=== PATIENT | male | born 1960 | race Caucasian/White ===

== ENCOUNTER 2020-12-23 06:07 | Day surgery (SDC) | payer OTHER ==
[~2020-12-23] VITALS: Ht 175.3 cm; Wt 104.5 kg
[~2020-12-23 06:07] MED LIST: SODIUM CHLORIDE 0.9% 1,000 ML ONE
[2020-12-23] MEDS ORDERED: BENZOCAINE 20% 50 MCG/SPRAY 57 GM TP ONE (06:08)
[2020-12-23] MEDS ORDERED: LIDOCAINE 4% 50 ML SOLUTION TP ONE (06:08)
[2020-12-23] MEDS ORDERED: ALBUTEROL SULFATE 2.5 MG/0.5 ML NEB SOLUTION NEB ONE (06:08)
[2020-12-23] MEDS ORDERED: LIDOCAINE 2% 30 ML JELLY TP ONE (06:08)
[2020-12-23] MEDS ORDERED: SODIUM CHLORIDE 0.9% 1,000 ML IV ONE (06:30)
[2020-12-23] MEDS ORDERED: DOXY-354 PO (06:40)
[2020-12-23] MEDS ORDERED: ASPI-1450 PO (06:40)
[2020-12-23] MEDS ORDERED: HYDR-4069 PO (06:40)
[2020-12-23] MEDS ORDERED: CARV12 PO (06:40)
[2020-12-23] MEDS ORDERED: MONT-35 PO (06:40)
[2020-12-23] MEDS ORDERED: OMEP20 PO (06:40)
[2020-12-23] MEDS ORDERED: CHOL200016 PO (06:40)
[2020-12-23] MEDS ORDERED: ATOR20TA86 PO (06:40)
[2020-12-23] MEDS ORDERED: IPRA3AMP24 NEB (06:40)
[2020-12-23] MEDS ORDERED: AZEL137S8 NS (06:40)
[2020-12-23] MEDS ORDERED: NICO-803 TD (06:40)
[2020-12-23] MEDS ORDERED: FERR324T12 PO (06:40)
[2020-12-23] MEDS ORDERED: AMLO10TA55 PO (06:40)
[2020-12-23] MEDS ORDERED: PRED10 PO (06:40)
[2020-12-23] MEDS ORDERED: FURO40TA5 PO (06:40)
[2020-12-23] MEDS ORDERED: FLUT12AE3 IH (06:40)
[2020-12-23] MEDS ORDERED: LISI-809 PO (06:40)
[2020-12-23 06:47] LABS: COVID AG,FIA SOURCE NASOPHARYNGEAL
[2020-12-23] MEDS ORDERED: FentaNYL CITRATE PF 100 MCG/2 ML VIAL ONE (07:29)
[2020-12-23] MEDS ORDERED: MIDAZOLAM HCL 5 MG/ML VIAL ONE (07:30)
[2020-12-23] MEDS ORDERED: MethylPREDNISolone SOD SUCC 125 MG/2 ML VIAL ONE ×2 (09:19→10:06)
[2020-12-23] MEDS ORDERED: MethylPREDNISolone SOD SUCC 125 MG/2 ML VIAL IVP ONE (09:30)
[2020-12-23] MEDS ORDERED: OXYGEN THERAPY IH SCH (20:00)
== END 2020-12-23 10:50 | disposition home or self-care (01) ==
LOC: SURGERY 06:07
PROVIDERS: ATTEND Internal Medicine Critical Care Medicine
DX: J38.4 Edema of larynx (principal); B37.0 Candidal stomatitis; I10 Essential (primary) hypertension; Z79.899 Other long term (current) drug therapy; Z98.890 Other specified postprocedural states
CPT/HCPCS: 31623; 31624; 71045; 71250; 87070; 87101; 87206; 87220; 87426; 88184; 88185; C9803; J2250; J2930; J3010; J7030; 87015; 87077; 87186; 87205; 88108; 88312; J7613; Z7610